=== PATIENT | male | born 1985 | race Caucasian/White ===

== ENCOUNTER 2016-11-23 01:22 | Emergency (ER) | payer MEDICAID, OTHER ==
[~2016-11-23] VITALS: Ht 177.8 cm; Wt 122.0 kg
[~2016-11-23 01:22] MED LIST: ACET500T98
[2016-11-23 01:29] VITALS: Ht 177.8 cm; Wt 122.0 kg
[2016-11-23] MEDS ORDERED: IBUPROFEN 600 MG TAB PO ONE (02:30)
--- NOTE | 2016-11-23 02:35 | ERA ---
ER Documentation Chief Complaint Date/Time DATE: 11/23/16 TIME: 02:26 Chief Complaint chest pain radiating to left arm x 3 days HPI This is a 31-year-old male who presents with a chief complaint of chest pain. Patient describes the chest pain as tight with pain radiating to his left arm that is associated with numbness and tingling as well. Patient states that the pain gets worse when he is lying down or the duration of the symptoms have been persistent over the past 3 days but have been worsening lately. Patient denies any shortness of breath, claudication, similar symptoms in the past, anxiety, palpitations, headache, change in diet, medical conditions, change in vision, medications, family cardiac history, smoking, alcohol abuse, recreational drug use, or recent illness. Patient has not taken any other medications at this time to improve the symptoms. Patient has no other complaints at this time. ROS All systems reviewed and are negative except as per history of present illness. Medications Home Meds Active Scripts Ibuprofen* (Motrin*) 400 Mg Tab, 400 MG PO Q6H Y for PAIN AND OR ELEVATED TEMP, #30 TAB Prov:GERARD KING PA-C 11/23/16 Reported Medications Acetaminophen (Tylenol) 500 Mg Tab 01/26/11 Allergies Allergies: Coded Allergies: No Known Drug Allergies (Verified Allergy, Unknown, 11/23/16) PMhx/Soc Medical and Surgical Hx: pt denies Medical Hx, pt denies Surgical Hx History of Surgery: No Anesthesia Reaction: No Hx Neurological Disorder: No Hx Respiratory Disorders: No Hx Cardiac Disorders: No Hx Psychiatric Problems: No Hx Miscellaneous Medical Probl: No Hx Alcohol Use: No Hx Substance Use: No Hx Tobacco Use: No Smoking Status: Never smoker Physical Exam Vitals Vital Signs Date Time Temp Pulse Resp B/P Pulse Ox O2 Delivery O2 Flow Rate FiO2 11/23/16 04:26 72 20 126/77 98 Room Air 11/23/16 01:29 71 20 129/59 97 Physical Exam Const: Healthy-appearing. Well-nourished. Well-developed. No acute distress. Head: Normocephalic, Atraumatic. No sinus tenderness. Eyes: Non-injected; No scleral erythema, discharge or foreign body. EOMI and CELI bilaterally. Ears: Normal External Ears, EACs clear, TM normal bilaterally without erythema. Nose: Normal nose without discharge, septal deviation, or sinus tenderness. Oral: No oral edema visualized. Mucous membranes moist and pink. Neck: No cervical lymphadenopathy, masses or goiter palpated. Full range of motion. Supple. Trachea midline. ~ No meningismus. Pulm: Good air movement in upper and lower respiratory tracts. No dyspnea, stridor, tripoding or drooling. Clear to auscultation bilaterally. Percussion unremarkable in all lung burrows bilaterally. Cardio: Regular rate and rhythm; No murmurs, gallops or rubs auscultated. No JVD grossly observed. Radial and posterior tibial pulses 2+ bilaterally. No cyanosis. Capillary refill less than 2 seconds. Abd: Soft, non tender, non distended. No guarding, masses. Normal bowel sounds. No McBurney's point tenderness. MS: Normal motor strength, normal tone with gross examination. Skin: No petechiae or rashes. No ulcer, induration, jaundice. Good turgor. Back: No midline, flank or CVA tenderness. Ext: No cyanosis, edema or palpable cord. Normal movement of all extremities grossly observed. Negative Adson's, Tinel's and Phalen's sign. Neur: Awake, alert and oriented x3. Neurovascularly intact bilaterally. Psych: Active and alert. Normal Mood and Affect. Oriented x3. Results 24 hrs Current Medications Medications (Trade) Dose Ordered Sig/William Route PRN Reason Start Time Stop Time Status Last Admin Dose Admin Ibuprofen (Motrin) 600 mg ONCE ONCE PO 11/23/16 02:30 11/23/16 02:31 DC 11/23/16 02:26 Procedures/MDM The patient was evaluated and worked up for atypical chest pain as described in the history and physical exam. Patient was given ibuprofen in the ED with improvement and chest pain. Upon presentation EKG was taken which was interpreted by my attending physician Dr. Blackwell; the impression was normal sinus rhythm with right bundle branch block. Good R-wave progression and no T-wave abnormalities with good baseline. I spoke with my attending physician Dr. Blackwell who suggested to get a chest x-ray to evaluate for any musculoskeletal abnormalities that may be seen. The chest x-ray results were as follows: The current most likely diagnosis is atypical chest pain due to unspecified ideology. 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 BRIAN score was < 3. At this time I do not suspect the chest pain to be due to an acute coronary syndrome, pericarditis, aortic dissection, pulmonary embolism, pneumothorax, esophageal tear/rupture, pneumonia or pancreatitis. I have spoke with the patient regarding their condition and future management. They have verbally responded that they understand their status and treatment plan. The patients vitals are stable, and their current condition is appropriate for discharge. The patient will be given discharge instructions with return precautions. Departure Diagnosis: Primary Impression: Chest pain Qualified Code: R07.89 - Other chest pain Condition: Stable Additional Instructions: Follow up with your PCP within the next 1-3 days for a more thorough evaluation and a possible referral to a specialist. Return the the emergency department immediately if symptoms worsen or change. If you have any questions regarding medications, ask your pharmacist or us before you leave. If any adverse reactions occur while taking your medications, discontinue the treatment and return to the emergency department immediately. Take your medications as directed, and complete the entire course of treatment. GERARD KING PA-C Nov 23, 2016 02:35
--- NOTE | 2016-11-23 04:13 | RADRPT ---
PROCEDURE: CHEST - 2 VIEW CLINICAL INDICATION: 31-year-old male with chest pain. TECHNIQUE: PA and lateral views of the chest were performed. The images were reviewed on a PACS w orkstation. COMPARISON: None. FINDINGS: The cardiomediastinal silhouette has a normal appearance. There is a shallow inspiration. There is no evidence for an infiltrate. The pulmonary vascularity is within normal limits. There is no evide nce for pneumothorax or pneumomediastinum. The osseous structures are intact. IMPRESSION: No evidence for active cardiopulmonary disease. .Jaskaran Eli MD, Date Time Electronically viewed and signed by .Jaskaran Eli MD, on 11/23/2016 04:12 .M/
[2016-11-23] MEDS ORDERED: IBUP400T22 PO (04:19)
[2016-11-23 04:26] VITALS: BP 126/77; PULSE 72; RESP 20
== END 2016-11-23 04:27 | disposition home or self-care (01) ==
LOC: FTE 01:22
DX: R07.89 Other chest pain (principal)
CPT/HCPCS: 71020; 93005; Z7502; Z7610